=== PATIENT | female | born 1980 | race Caucasian/White ===

== ENCOUNTER 2024-02-08 17:54 | Inpatient (IN) | payer OTHER ==
[2024-02-08 19:25] VITALS: BMI 28.6
[2024-02-08] MEDS ORDERED: DOCUSATE SODIUM 100 MG CAPSULE (FP) PO PRN (20:18)
[2024-02-08] MEDS ORDERED: POLYETHYLENE GLYCOL (HEALTHYLAX) 3350 17 GM PACKET PO PRN (20:18)
[2024-02-08] MEDS ORDERED: MAG HYDROX/AL HYDROX/SIMETH 30 ML UNIT-DOSE CUP PO PRN (20:18)
[2024-02-08] MEDS ORDERED: NALOXONE (NARCAN) HCL 4 MG/0.1 ML SPRAY NS PRN (20:18)
[2024-02-08] MEDS ORDERED: guaiFENesin 600 MG TABLET.ER (FP) PO PRN (20:18)
[2024-02-08] MEDS ORDERED: NICOTINE POLACRILEX 2 MG LOZENGE BC PRN (20:18)
[2024-02-08] MEDS ORDERED: P-EPHED 60MG/TRIPROLIDI 2.5MG TABLET PO PRN (20:18)
[2024-02-08] MEDS ORDERED: BENZOCAINE/MENTHOL (CHLORASEPTIC ) LOZENGE MM PRN (20:18)
[2024-02-08] MEDS ORDERED: BENZONATATE 200 MG CAPSULE PO PRN (20:18)
[2024-02-08] MEDS ORDERED: MAGNESIUM HYDROX 2400MG/30ML ORAL SUSPENSION 30 ML CUP PO PRN (20:18)
[2024-02-08] MEDS ORDERED: ACETAMINOPHEN 325 MG TABLET (FP) PO PRN (20:18)
[2024-02-08] MEDS ORDERED: LOPERAMIDE HCL 2 MG CAPSULE PO PRN (20:18)
[2024-02-08] MEDS ORDERED: MELATONIN 5 MG TABLETS ONE (22:29)
[2024-02-08] MEDS: MELATONIN 5 MG TABLETS PO SCH (22:45)
[2024-02-08] MEDS: THIAMINE 100 MG TABLET PO SCH (22:45)
[2024-02-08] MEDS ORDERED: IBUPROFEN 600 MG TABLET (FP) PO ONE (23:02)
[2024-02-08] MEDS: IBUPROFEN 600 MG TABLET (FP) PO PRN (23:13)
[2024-02-08] MEDS: MELATONIN 5 MG TABLETS PO ONE (23:47)
[2024-02-08] MEDS: levETIRAcetam 500 MG TABLET (FP) PO ONE (23:47)
[2024-02-08] MEDS: busPIRone HCL 5 MG TABLET PO ONE (23:47)
[2024-02-09] MEDS: BICTEGRAV/EMTRICIT/TENOFOV (BIKTARVY) 50-200-25 MG TABLET PO SCH (07:22)
[2024-02-09] MEDS ORDERED: methaDONE HCL 10 MG TABLET PO SCH (07:45)
[2024-02-09] MEDS: PRENATAL VITAMINS W/ FOLIC ACID TABLET (FP) PO SCH (09:55)
[2024-02-09] MEDS: levETIRAcetam 500 MG TABLET (FP) PO SCH (09:55)
[2024-02-09] MEDS: TUBERCULIN PPD 5 TU/0.1ML SYRINGE (IN PATIENT USE ONLY) ID ONE (09:58)
[2024-02-09] MEDS: hydrOXYzine PAMOATE 25 MG CAPSULE (FP) PO PRN (10:26)
[2024-02-09] MEDS: GABAPENTIN 300 MG CAPSULE PO SCH (10:26)
[2024-02-09 12:49] LABS: URINE APPEARANCE CLOUDY; URINE BILIRUBIN NEGATIVE (NEGATIVE); URINE COLOR YELLOW; URINE GLUCOSE (UA) NEGATIVE (NEGATIVE); URINE KETONE NEGATIVE (NEGATIVE); URINE LEUK ESTERASE NEGATIVE (NEGATIVE); URINE NITRITE NEGATIVE (NEGATIVE); URINE PROTEIN TRACE (NEGATIVE); URINE UROBILINOGEN 0.2 mg/dL (0.2-1.0)
[2024-02-09 13:00] LABS: HEMATOCRIT 31.7 % (32.4-45.2); HEMOGLOBIN 10.5 GM/dL (10.7-15.3); MCH 26.5 pg (25.7-33.7); MCHC 33.2 g/dl (32.0-36.0); MEAN CELL VOLUME 79.7 fl (80-96); MEAN PLT VOLUME 7.5 fl (7.5-11.1); PLATELET COUNT 311 10^3/uL (134-434); RBC 3.97 M/mm3 (3.60-5.2); RDW 16.7 % (11.6-15.6); WHITE BLOOD COUNT 5.4 K/mm3 (4.0-10.0)
[2024-02-09 13:05] LABS: POTASSIUM 4.2 mmol/L (3.5-5.1)
[2024-02-09 13:18] LABS: CALCIUM 8.5 mg/dL (8.5-10.1)
[2024-02-09 13:19] LABS: ALBUMIN 3.1 g/dl (3.4-5.0); BLOOD UREA NITROGEN 23.2 mg/dL (7-18)
[2024-02-09 13:23] LABS: BILIRUBIN,TOTAL 0.3 mg/dL (0.2-1); CREATININE 0.8 mg/dL (0.55-1.3)
[2024-02-09] MEDS: IBUPROFEN 400 MG TABLET (FP) PO PRN (17:26)
[2024-02-09] MEDS: MIRTAZAPINE 15 MG TABLET (FP) PO SCH (21:51)
[2024-02-09] MEDS: busPIRone HCL 5 MG TABLET PO SCH (22:27)
[2024-02-10] MEDS: NICOTINE POLACRILEX 2 MG GUM BUC PRN (10:17)
[2024-02-10] MEDS: QUEtiapine FUMARATE 100 MG TABLET (FP) PO SCH (21:09)
[2024-02-11] MEDS: BICTEGRAV/EMTRICIT/TENOFOV (BIKTARVY) 50-200-25 MG TABLET PO SCH (06:27)
[2024-02-13] MEDS: amLODIPine BESYLATE 2.5 MG TABLET (FP) PO SCH (12:27)
[2024-02-13] MEDS: SULFAMETHOXAZOLE/TRIMETHOPRIM 800MG/160MG D.S. TABLET PO SCH (12:41)
[2024-02-13] MEDS: GABAPENTIN 400 MG CAPSULE PO SCH (13:41)
[2024-02-13] MEDS: MUPIROCIN CA 2% TOPICAL CREAM 15 GM TUBE TP SCH (15:32)
[2024-02-13] MEDS: BACLOFEN 10 MG TABLET (FP) PO SCH (21:38)
[2024-02-13] MEDS: busPIRone HCL 10 MG TABLET (FP) PO SCH (21:40)
[2024-02-14] MEDS: amLODIPine BESYLATE 5 MG TABLET (FP) PO SCH (10:09)
[2024-02-15] MEDS: ERGOCALCIFEROL (VIT D2) 50,000 UNIT (1.25 MG) CAPSULE PO SCH (12:00)
[2024-02-16] MEDS: GABAPENTIN 300 MG CAPSULE PO SCH ×2 (15:19→15:22)
[2024-02-17] MEDS: methaDONE HCL 40 MG DISPERSABLE TABLET PO SCH (07:26)
[2024-02-21 09:24] VITALS: BP 117/76; PULSE 105; RESP 17; TEMP 98
[2024-02-21] MEDS: NALOXONE (NYS OPIOID OVERDOSE PROGRAM) 4 MG/0.1 ML SPRAY NS SCH (10:01)
== END 2024-02-21 10:25 | disposition home or self-care (01) | DRG 772 ==
LOC: YASAS 17:54 → Y3NR 21:39 → Y5N 02-09 19:33
PROVIDERS: ADMIT Allergy & Immunology; ATTEND Psychiatry & Neurology Pain Medicine
PROC: HZ42ZZZ Group Counseling for Substance Abuse Treatment, Cognitive-Behavioral (ICD-10-PCS; principal; 2024-02-08)
DX: F10.20 Alcohol dependence, uncomplicated (principal); F11.10 Opioid abuse, uncomplicated; F14.10 Cocaine abuse, uncomplicated; F32.A Depression, unspecified; F41.9 Anxiety disorder, unspecified; F17.210 Nicotine dependence, cigarettes, uncomplicated; Z21 Asymptomatic human immunodeficiency virus [HIV] infection status; I10 Essential (primary) hypertension; J45.909 Unspecified asthma, uncomplicated; G40.909 Epilepsy, unspecified, not intractable, without status epilepticus; L97.828 Non-pressure chronic ulcer of other part of left lower leg with other specified severity; L97.818 Non-pressure chronic ulcer of other part of right lower leg with other specified severity; M54.50 Low back pain, unspecified; G89.29 Other chronic pain
CPT/HCPCS: 36415; 80053; 80305; 80307; 81003; 81025; 85027; 86780; 87070; 87077; 87186; 87205; 93005; 93010; J0475